=== PATIENT | female | born 1995 | race Caucasian/White ===

== ENCOUNTER 2016-06-03 12:28 | Emergency (ER) | payer SELFPAY ==
[2016-06-03 12:39] VITALS: TEMP 97.6; BMI 30.5
[2016-06-03 13:02] LABS: LEUKOCYTES/URINE NEG (NEGATIVE); NITRITE/URINE NEG (NEGATIVE); RBC/URINE 0-2 (0-5); URINE OCCULT BLOOD NEG (NEG/TRACE); WBC/URINE 0-2 (0-5)
--- NOTE | 2016-06-03 14:20 | EDPRACDOC ---
- General Information Chief Complaint: Female Urogenital Problems Stated Complaint: ABDOMINAL PAIN Time Seen by Provider: 06/03/16 13:29 Information Source: Patient Mode Of Arrival: Car Home Medications: Home Medications No Home Medications 06/03/16 Allergies/Adverse Reactions: Allergies Allergy/AdvReac Type Severity Reaction Status Date / Time No Known Allergies Allergy Verified 06/03/16 12:39 - History of Present Illness Onset: 1 HOUR UNPAID INTERN HPI: PT PRESENTS TODAY WITH LOWER ABD PAIN THAT BEGAN 1 HOUR AGO AFTER SEXUAL INTERCOURSE. PT STATES SHORTLY AFTER INTERCOURSE AND DESCRIBES THE PAIN A "STABBING IN MY VAGINA AND RECTUM". NO OTHER S/S. PT TEXTING AND IN NO DISTRESS. Pain Location: Reports: Suprapubic Pain Severity: Moderate Pain Quality: Reports: Stabbing Pain Radiation: Reports: No Radiation Last Menstrual Period: MAY 15 (DOES NOT USE BC) : (?) Control Method: Reports: None Modifying Factors: improves with: Nothing Oral Intake: Normal Urinary Output: Normal ED Past Medical History - History Reviewed Yes Nurses notes reviewed and agree except as marked - Social Medical History Smoking Status: Never smoker EDM Review of Systems - Review of Systems ROS Negative Except as Marked: Yes All systems reviewed and were negative except as marked Constitutional: No Symptoms Reported Respiratory: No Symptoms Reported Cardiovascular: No Symptoms Reported Gastrointestinal: Pain Genitourinary: Other (PAIN) Neurological: No Symptoms Reported Musculoskeletal: No Symptoms Reported Integumentary: No Symptoms Reported - Physical Exam Constitutional: Alert (Awake), No apparent distress Oriented to: Time, Person, Place Last recorded Vital Signs: Last Vital Signs Temp 97.6 F 06/03/16 12:34 Pulse 84 06/03/16 12:34 Resp 18 06/03/16 12:34 BP 135/72 06/03/16 12:34 Pulse Ox 97 06/03/16 12:34 Oxygen Pulse Oxygen Saturation 97 O2 Device Room Air Oxygen Flow Rate Fraction of Inspired Oxygen ( FIO2) - HEENT Head: Normal Eye Exam: Normal Neck: Normal, Denies Pain, Midline - Respiratory/Cardiovascular Respiratory: Normal - CTA Cardiovascular: Normal - GI Auscultation: Normal Palpation: Normal Tenderness: Moderate, Suprapubic Contreras's Sign: Negative Rectal Exam: Normal - Bladder: Tender External: Normal Vagina: Normal Cervix: Normal Uterus: Normal size Adnexa: Bilateral: Normal - Musculoskeletal Back: Normal Extremities: Normal - Integumentary Skin: Normal Lymphatics: Normal - Neurologic Cerebellar: Normal Mood Description: Normal Thought: Coherent Perception: Normal - Results Urine Color Pale yell0w 06/03/16 12:40 Urine Clarity Clear 06/03/16 12:40 Urine pH 6.0 (5.0-8.0) 06/03/16 12:40 Ur Specific [place] 1.010 (1.003-1.035) 06/03/16 12:40 Urine Protein Neg (NEG/TRACE) 06/03/16 12:40 Urine Glucose (UA) Neg (NEGATIVE) 06/03/16 12:40 Urine Ketones Neg (NEGATIVE) 06/03/16 12:40 Urine Occult Blood Neg (NEG/TRACE) 06/03/16 12:40 Urine Nitrite Neg (NEGATIVE) 06/03/16 12:40 Urine Bilirubin Neg (NEGATIVE) 06/03/16 12:40 Urine Urobilinogen 0.2 MG/DL (0-1) 06/03/16 12:40 Ur Leukocyte Esterase Neg (NEGATIVE) 06/03/16 12:40 Urine RBC 0-2 (0-5) 06/03/16 12:40 Urine WBC 0-2 (0-5) 06/03/16 12:40 Ur Epithelial Cells 1+ 06/03/16 12:40 Urine Bacteria Few (NEG/FEW) 06/03/16 12:40 Urine Mucus Occ (NEG/OCC) 06/03/16 12:40 Urine Test Neg (NEGATIVE) 06/03/16 12:40 Microbiology 06/03/16 13:46 MICHAELA Preparation - Final Vaginal 06/03/16 13:46 Trichomonas Wet [place] - Final Vaginal Lab Results 06/03/16 06/03/16 12:40 12:40 Urine Color Pale yell0w Urine Clarity Clear Urine pH 6.0 Ur Specific [place] 1.010 Urine Protein Neg Urine Glucose (UA) Neg Urine Ketones Neg Urine Occult Blood Neg Urine Nitrite Neg Urine Bilirubin Neg Urine Urobilinogen 0.2 Ur Leukocyte Esterase Neg Urine RBC 0-2 Urine WBC 0-2 Ur Epithelial Cells 1+ Urine Bacteria Few Urine Mucus Occ Urine Test Neg Decision Time to Discharge: 14:19 - Departure Disposition: Home Condition: Good Final Diagnosis: Abdominal pain Qualifiers: Abdominal location: lower abdomen, unspecified Qualified Code(s): R10.30 - Lower abdominal pain, unspecified Instructions: Non-pharmacological Pain Management Therapies for Adults (GEN), Abdominal Pain (ED) Education/Counseling Given To: Patient Education/Counseling Given Regarding: Diagnosis, Treatment, Follow Up Referrals: Vivi Marin MD [Primary Care Provider] - One Week Rose Mary Garcia DO [Staff Physician] - One Week Additional Instructions: IBUPROFEN NEEDED FOR PAIN. FOLLOW UP WITH [facility]ENDING [facility]ER.
[2016-06-03 14:48] VITALS: BP 121/68; PULSE 68
[2016-06-04 16:40] LABS: CHLAMY BY NUCLEIC ACID AMP Negative (Negative)
[2016-06-05 06:56] LABS: GC BY NUCLEIC ACID AMP Negative (Negative)
== END 2016-06-03 14:45 | disposition home or self-care (01) ==
LOC: ED 12:28
DX: R10.30 Lower abdominal pain, unspecified (principal)
CPT/HCPCS: 81001; 81025; 87210; 87220; 87491; 87591; 99283